=== PATIENT | male | born 1975 | race Caucasian/White ===

== ENCOUNTER 2017-01-11 17:32 | Emergency (ER) | payer OTHER ==
[~2017-01-11] VITALS: Ht 180.3 cm; Wt 117.9 kg
[2017-01-11] MEDS ORDERED: MAGNESIUM SULFATE 2GM 50 ML IV ONE (18:30)
[2017-01-11] MEDS ORDERED: diphenhydrAMINE 50 MG/ML VIAL IVP ONE (18:30)
[2017-01-11] MEDS ORDERED: fentaNYL PF VIAL 100 MCG/2 ML VIAL IV ONE (18:30)
--- NOTE | 2017-01-11 18:38 | RAD ---
EXAM: Head CT without contrast. HISTORY: Headache. TECHNIQUE: Computed tomographic images of the head were obtained without contrast. COMPARISON: None. FINDINGS: There is no acute or subacute extra-axial or intraparenchymal hemorrhage. There is no mass effect or midline shift. There is no hydrocephalus. The jimenez-white matter differentiation pattern is intact. There is a tiny focus of fat density within the region of the foramen of Vaughan, possibly artifactual or due to a tiny lipoma of no clinical significance. 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 The mastoid air cells are clear. The orbits are unremarkable. No calvarial lesion is seen. IMPRESSION: No acute intracranial finding. *One or more of the following individualized dose reduction techniques were utilized for this examination: 1. Automated exposure control. 2. Adjustment of the mA and/or kV according to patient size. 3. Use of iterative reconstruction technique. Electronically signed by: January Galeano MD (01/11/2017 6:34 PM)
[2017-01-11] MEDS ORDERED: KETOROLAC TROMETHAMINE 30 MG/ML INJ. IV ONE (19:45)
--- NOTE | 2017-01-11 20:08 | PHYS DOC ---
Past Medical History Past Medical History: Migraines Past Surgical History: No Surgical History Alcohol Use: Occasionally Drug Use: None Adult General Chief Complaint Chief Complaint: HEADACHE HPI HPI Patient is a 41 year old M who presents with with a migraine headache that started approximately 4 hours prior to presentation. Patient states he had a history of migraine headaches but has not had one for quite some time. Patient usually gets visual auras with his migraine headaches and this time. The same symptoms. Patient complains of pain to the left side of his face with pressure behind the left eye. Patient also had some difficult he talking and elevated blood pressure when EMS got there. In the emergency room the patient simply talking and blood pressure have resolved. Patient declined any nausea/vomiting/ diarrhea. Patient declined any fevers. Patient declined any chest pain or shortness of breath. Patient no other complaints. Pertinent exam findings: Cranial nerves II through XII are grossly intact with a focal neurological deficits ED course: Patient seen and evaluated, basic i-STAT, CT of the head without contrast, 2 g of magnesium, 50 mg of Benadryl, 50 g of fentanyl, 30 mg of Toradol IV 2003: Patient was reevaluated and updated on CT results patient states he feels better however the headache is still there but is ready go home. Her committed follow-up with PCP. Pertinent results: CT scan of the head without contrast and NAD MDM: After reviewing the chart, CC/HPI/PMH, physical exam, [lab results], [ radiological results], I do not believe the patient has an acute intracranial process warranting further workup and/or admission at this time. Patient presented to the emergency room within 4 hours of symptoms onset therefore low suspicion for acute subarachnoid hemorrhage. Per the patient this is consistent with his previous diagnosis of migraine headaches. On reexamination the symptoms have gotten better the patient is ready to go home. Patient is stable for discharge. Patient is okay with going home. Additional verbal discharge instructions were provided to the patient and that if symptoms get worse or any new symptoms arise that are worrisome to the patient he is to return to the emergency room immediately Review of Systems Review of Systems GEN: Denies fevers, chills, sweats HEENT: Denies blurred vision, sore throat CV: Denies chest pain RESP: Denies shortness of air, cough GI: Denies n/v/d NEURO: Headache MSK: Denies weakness, joint pain/swelling Current Medications Current Medications Current Medications Medications (Trade) Dose Ordered Sig/Ping Start Time Stop Time Status Last Admin Dose Admin Diphenhydramine HCl (Benadryl) 50 mg 1X ONCE 01/11/17 18:30 01/11/17 18:31 DC 01/11/17 18:39 50 MG Fentanyl Citrate (Fentanyl 2ml Vial) 50 mcg 1X ONCE 01/11/17 18:30 01/11/17 18:31 DC 01/11/17 18:42 50 MCG Ketorolac Tromethamine (Toradol) 30 mg 1X ONCE 01/11/17 19:45 01/11/17 19:46 DC 01/11/17 19:46 30 MG Magnesium Sulfate/ Dextrose 50 ml @ 25 mls/hr 1X ONCE 01/11/17 18:30 01/11/17 20:29 01/11/17 18:48 25 MLS/HR Allergies Allergies Allergies Coded Allergies Type Severity Reaction Last Updated Verified No Known Drug Allergies 01/11/17 No Physical Exam Physical Exam GEN.: No apparent distress. Alert and oriented. HEENT: Head is normocephalic, atraumatic NECK: Supple. LUNGS: CTAB. HEART: RRR, S1, S2 present. Peripheral pulses intact ABDOMEN: Soft, nontender. Positive bowel sounds. EXTREMITIES: Without any cyanosis. NEUROLOGIC: Normal speech, normal tone, cranial nerves II through XII are grossly intact without any focal neurological deficits PSYCHIATRIC: Normal affect, normal mood. SKIN: No ulcerations Current Patient Data Vital Signs Vital Signs Date Time Temp Pulse Resp B/P (MAP) Pulse Ox O2 Delivery O2 Flow Rate FiO2 01/11/17 20:12 67 18 118/67 (84) Room Air 01/11/17 19:38 96 01/11/17 18:09 98.7 98.7 EKG EKG [] Radiology/Procedures Radiology/Procedures CT scan of the head without contrast NAD [] Course & Med Decision Making Course & Med Decision Making Pertinent Labs and Imaging studies reviewed. (See chart for details) [] Dragon Disclaimer Dragon Disclaimer This electronic medical record was generated, in whole or in part, using a voice recognition dictation system. Departure Departure Impression: Primary Impression: Migraine headache with aura Disposition: HOME, SELF-CARE Condition: IMPROVED Referrals: MACARIO CASTELLANO MD (PCP) Patient Instructions: Migraine Headache Additional Instructions: Please follow up with her PCP in one to 2 days and return if symptoms increase FRACISCO COUGHLIN DO Jan 11, 2017 20:08
[2017-01-11 20:12] VITALS: BP 118/67
== END 2017-01-11 20:15 | disposition home or self-care (01) ==
LOC: ER 17:32
DX: G43.109 Migraine with aura, not intractable, without status migrainosus (principal); R03.0 Elevated blood-pressure reading, without diagnosis of hypertension
CPT/HCPCS: 70450; 80047; 96365; 96375; 99284; J1200; J1885; J3010; J7060

== ENCOUNTER → 2017-03-22 | Outpatient (CLI) | payer OTHER ==
[~2017-03-22] VITALS: Ht 210.8 cm; Wt 120.2 kg
[~2017-03-22] MED LIST: LISI-338 PO; SINCALIDE 2.4 MCG in IV NORMAL SALINE 50ML 30 ML IV ONE
--- NOTE | 2017-03-22 08:15 | RAD ---
Right upper quadrant abdominal ultrasound, 03/22/2017: History: Right upper quadrant pain. The gallbladder is within normal limits in size. There is no sonographic evidence of cholelithiasis. The gallbladder wall is not thickened. There is a fold or partial septation inferiorly. No bile duct dilatation is seen. The liver demonstrates increased echogenicity in a diffuse pattern suggesting fatty change. No hepatic mass is evident. The pancreas was obscured by overlying bowel. The right kidney is unremarkable. IMPRESSION: 1. No significant gallbladder abnormality is detected. 2. Increased hepatic echogenicity suggesting fatty change.
--- NOTE | 2017-03-22 11:36 | RAD ---
Radionuclide hepatobiliary scan with gallbladder ejection fraction, 03/22/2017: History: Abdominal pain Following IV injection of 5.5 mCi of technetium 99m Choletec there was prompt uptake of the radionuclide from the blood stream by the liver. Activity is present in the bile ducts and gallbladder at 10 minutes. Initial imaging up to 1 hour showed increasing activity in the gallbladder without extension into the small bowel. Additional images were then obtained following IV injection of 2.4 mcg of cholecystokinin. There is good gallbladder emptying with the gallbladder ejection fraction calculated at 70%. Small bowel activity develops after the cholecystokinin injection. IMPRESSION: 1. No evidence of cystic duct or common bile duct obstruction. 2. The gallbladder ejection fraction is 70%.
== END | disposition home or self-care (01) ==
LOC: US 06:43
PROVIDERS: ATTEND Internal Medicine Gastroenterology
DX: R10.11 Right upper quadrant pain (principal)
CPT/HCPCS: 76705; 78226; 96374; 96375; A9537; J2805